=== PATIENT | female | born 1930 | race Caucasian/White ===

== ENCOUNTER 2016-09-02 18:35 | Emergency (ER) | payer MEDICARE ==
[~2016-09-02] VITALS: Ht 157.5 cm; Wt 55.5 kg
[~2016-09-02 18:35] MED LIST: CIPR-232 PO; OMEP-113 PO; PROC25SU30 RC
[2016-09-02 18:41] VITALS: BP 154/74; PULSE 108; RESP 18; O2SAT 99
[2016-09-02 19:49] LABS: BASOPHILS % (AUTO) 0.7 % (0-3); EOSINOPHILS % (AUTO) 6.3 % (0-5); MONOCYTES % (AUTO) 9.6 % (4-12); Mean Corpuscular Hemoglobin 30.7 pg (27.0-35.0); Mean Corpuscular Volume 92.4 fL (81-100); NEUTROPHILS % (AUTO) 53.4 % (40-74); Platelet Count 205 bil/L (150-400)
[2016-09-02 20:06] LABS: Magnesium 2.2 mg/dL (1.6-2.6)
--- NOTE | 2016-09-02 21:17 | ED.REPORT ---
HPI-General Illness Date of Service September 02, 2016 ED Provider: Markos West MD The patient is a healthy 85 year old female who presents to the ED reporting an abnormal bowel movement today. She reports feeling a finger-like protrusion from her rectum that was not stool. She was able to "push this back in" without pain or blood present. The patient denies other symptoms and has never had similar symptoms in the past. Nursing Notes Stated Complaint: FEELS LIKE BOWELS ARE COMING OUT OF RECTUM Chief Complaint: Female Abdominal Pain Nursing Notes Reviewed: Yes Allergies: Coded Allergies: Penicillins (Verified Allergy, Unknown, 09/12/14) Scheduled Ciprofloxacin (Cipro) 250 Mg Tablet 500 MG PO BID Hydrocortisone Acetate (Anusol-Hc) 25 Mg Supp.rect 25 MG RC DAILY Hydrocortisone Acetate (Anusol-Hc) 25 Mg Supp.rect 25 MG RC DAILY Omeprazole Magnesium (Omeprazole) 20 Mg Capsule.dr 40 MG PO DAILY Scheduled PRN Prochlorperazine Maleate (Compazine Suppository) 25 Mg Supp.rect 25 MG RC Q8 PRN PRN For Nausea/Vomiting General Time Seen by MD: 21:16 Chief Complaint Other (Abnormal Bowel Movement) Hx Obtained From: Patient Arrived By: Walk-in Sudden in Onset?: Yes Onset Occurred: 1 - 4 hours ago Symptom Duration: 1 - 15 minutes Severity: Current: No pain currently Severity: Maximum: No pain Recent Healthcare: No recent doctor visit Similar Sx Previous: No Past Medical History Past Medical History Notes: Lives at [facility] 09/02/2016 Past Medical History Healthy, no daily meds Past Surgical History Polyps in uterus removed in her 20s Reports: Cataract surgery, Hysterectomy Smoking History Former Smoker Social History Alcohol Use: Denies alcohol use Drug Use: Denies drug use Other Social History: Lives alone Occupation lives at [facility] [place] 02/21/2016 Ambulatory Status Independent Review of Systems + Abnormal bowel movement: finger-like protrusion from rectum that was not stool - Rectal bleeding Full Review of Systems Constitutional: Denies: Fever Respiratory: Denies: Non-productive cough, Shortness of breath GI: Denies: Diarrhea, Rectal pain, Vomiting Complete sys rev & neg: except as marked. Physical Exam Vital Signs Vital Signs Date Time Temp Pulse Resp B/P Pulse Ox O2 Delivery O2 Flow Rate FiO2 09/02/16 23:39 36.1 71 16 149/83 97 Room Air 09/02/16 18:41 36.7 108 18 154/74 99 Room Air Initial VS: Reviewed, Vital signs abnormal Head / Eyes: Atraumatic, Normocephalic ENT: Conjunctiva normal, No scleral icterus Neck: Supple, Full range of motion Skin: Warm, Dry, No cyanosis Neurologic: Alert, Oriented, Nonfocal Psychiatric: Mood/affect normal, Behavior normal, Normal thought content General/Constitutional: Awake, Alert Rectum / Perineum: No gross blood, No hemorrhoids Old hemorrhoidal tags noted Interpretation & Diagnostics URINE DIPSTICK: Bedside Urine Specific [place] * 1.010 Bedside Urine pH * 5 Bedside Urine Leukocyte Esterase * ++ Bedside Urine Nitrite * Negative Bedside Urine Protein * Negative Bedside Urine Glucose * Normal Bedside Urine Ketones * Negative Bedside Urine Urobilinogen * Normal Bedside Urine Bilirubin * Negative Bedside Urine Occult Blood * ~50 Nickolas/ml Urine to Lab * Yes Lab Results Interpretation Result Diagram: 09/02/16 1924 09/02/16 1924 Test 09/02/16 19:24 09/02/16 19:32 09/02/16 21:58 White Blood Count 7.0th/mm3 (3.8-10.1) Red Blood Count 4.50mil/mm3 (3.90-5.20) Hemoglobin 13.8g/dL (12.0-15.6) Hematocrit 41.6% (35.0-46.0) Mean Corpuscular Volume 92.4fL (81-100) Mean Corpuscular Hemoglobin 30.7pg (27.0-35.0) Mean Corpuscular Hemoglobin Concent 33.2% (32.0-37.0) Red Cell Distribution Width 13.6% (12.3-15.4) Platelet Count 205bil/L (150-400) Neutrophils (%) (Auto) 53.4% (40-74) Lymphocytes (%) (Auto) 29.7% (14-46) Monocytes (%) (Auto) 9.6% (4-12) Eosinophils (%) (Auto) 6.3% (0-5) Basophils (%) (Auto) 0.7% (0-3) Sodium Level 139mEq/L (134-144) Potassium Level 4.6mEq/L (3.5-5.2) Chloride Level 103mEq/L (97-108) Carbon Dioxide Level 22mmol/L (18-29) Blood Urea Nitrogen 23mg/dL (8-27) Creatinine 1.25mg/dL (0.57-1.00) Estimat Glomerular Filtration Rate 59mL/min (>59) Glucose Level 107mg/dL (60-99) Calcium Level 9.3mg/dL (8.5-10.1) Magnesium Level 2.2mg/dL (1.6-2.6) Total Bilirubin 0.2mg/dL (0.0-1.2) Aspartate Amino Transf (AST/SGOT) 16U/L (0-50) Alanine Aminotransferase (ALT/SGPT) 10U/L (0-32) Alkaline Phosphatase 53U/L (25-165) Total Protein 6.5g/dL (6.4-8.4) Albumin 3.7g/dL (3.4-5.0) Lipase 44U/L (13-60) Hold Lopez Top Tube Received (Received) Urine Color Yellow (YELLOW) Urine Appearance Clear (CLEAR,HAZY) Urine pH 6.0 (5.0-8.0) Urine Specific [place] 1.011 (1.003-1.035) Urine Protein Negativemg/dL (NEG,TRACE) Urine Glucose (UA) Negativemg/dL (NEGATIVE) Urine Ketones Negativemg/dL (NEGATIVE) Urine Occult Blood Trace (NEGATIVE) Urine Nitrite Negative (NEGATIVE) Urine Bilirubin Negative (NEGATIVE) Urine Urobilinogen Normalmg/dL (NORMAL) Urine Leukocyte Esterase Moderate (NEGATIVE) Urine RBC 0-2/hpf (0-2) Urine WBC 11-50/hpf (0-5) Urine Epithelial Cells Few/hpf (NONE-MOD) Urine Crystals None seen (NONE SEEN) Urine Bacteria None/hpf (NONE-FEW) Urine Hyaline Casts None/lpf (NONE) Urine Granular Casts None seen (NONE SEEN) Urine Waxy Casts None seen (NONE SEEN) Urine Red Blood Cell Casts None seen (NONE SEEN) Urine White Blood Cell Casts None seen (NONE SEEN) Urine Mucus None seen (None Seen) Urine Trichomonas None seen (NONE SEEN) Urine Yeast None (NONE SEEN) Urine Culture Reflexed Indicated Lab Results Interpretation: Elevated white blood count in the urine, culture pending. ECG Interpretation ECG Interpretation: Sinus rhythm rate 76 Time: 19:35 Interpreted by: ED physician Re-Eval/Medical Decision Med Decision/Clinical Course 85-year-old who presents because of something hanging out of her bottom. She describes it as about the size of a finger, nontender, and easily pushed back in. On physical exam no active hemorrhoids are seen, but she has 3 or 4 in active external hemorrhoidal tags. There is no prolapse. Her symptoms are most likely from an internal hemorrhoid. She was given a hemorrhoidal suppository here along with a prescription for same. She will be discharged home to follow up with Dr. Hart. Additionally, she had mild UTI symptoms. Urinalysis shows 11-50 white cells per her peripheral, culture pending. She will be treated with Keflex 500 mg by mouth 3 times a day, prepack dispensed. Source of Hx: Old records Time of Eval: 23:00 Patient Status: Condition improved Re-Evaluation/Progress Note: Discussed with patient lab results, diagnosis, and plan for discharge. Follow-up and return to the ER instructions given. Patient agrees with plan for care and all questions were addressed. Counseled Regarding: Diagnosis, Lab results, Need for follow-up, When/why to return to ED Discharge & Departure Primary Impression: Internal hemorrhoid Additional Impression: Urinary tract infection Urinary tract infection type: acute cystitis Hematuria presence: without hematuria Qualified Code: N30.00 - Acute cystitis without hematuria Disposition: Home Discharge Condition All VS Reviewed: Yes Condition: Improved Patient Instructions: Hemorrhoids (ED), Urinary Tract Infection in Women (ED) Additional Instructions: Thank you for entrusting us with your care. It appears that you have an internal hemorrhoid. The suppositories we have given you will help to strength. If it pops out again, push it back in like you did before. Insert one suppository daily to help shrink the hemorrhoid. You also have a bladder infection. Drink plenty of fluids, cranberry juice. Trimethoprim sulfamethoxazole DS (Septra) 1 pill twice daily for 10 days, #20 dispensed. Recheck your urinalysis in a couple of weeks at the clinic. Follow-up with Dr. Hart at [facility] in 2 weeks to recheck this. Return to the ER with any new or worsening symptoms. Referrals: Viridiana Hart MD (PCP) Scribe Attestation Portions of this note were transcribed by Noreen Reynolds. I, Dr. West, personally performed the history, physical exam, and medical decision-making; I reviewed and confirmed the accuracy of the information in the transcribed note. Signed by: Trixie Jaimes, 09/02/2016, 23:30 copies to: Viridiana Hart MD, Howard L MD September 02, 2016 21:17 NOREEN REYNOLDS September 02, 2016 21:24
[2016-09-02] MEDS ORDERED: Phenylephrine 0.25% Rectal Suppository RECTAL ONE (21:25)
[2016-09-02] MEDS ORDERED: HYDR25SU31 RC ×2 (21:27→23:32)
[2016-09-02 22:51] LABS: APPEARANCE,URINE CLEAR (CLEAR,HAZY); COLOR,URINE YELLOW (YELLOW); OCCULT BLOOD,URINE TRACE (NEGATIVE); UROBILINOGEN,URINE NORMAL (NORMAL)
[2016-09-02 23:39] VITALS: BP 149/83; PULSE 71; RESP 16; O2SAT 97
[2016-09-03] MEDS ORDERED: _Cephalexin 500 mg Capsule PO SCH (08:30)
[2016-09-03] MEDS ORDERED: _Trimethoprim-Sulfa 160/800 mg Tablet PO SCH (08:30)
== END 2016-09-02 23:40 | disposition home or self-care (01) ==
LOC: SED 18:35
DX: K64.8 Other hemorrhoids (principal); N30.00 Acute cystitis without hematuria; B96.20 Unspecified Escherichia coli [E. coli] as the cause of diseases classified elsewhere; Z87.891 Personal history of nicotine dependence; Z88.0 Allergy status to penicillin